=== PATIENT | male | born 1960 | race Caucasian/White ===

== ENCOUNTER 2017-02-26 00:53 | Emergency (ER) | payer OTHER | END 2017-02-26 01:38 | disposition other institution (70) | LOC: ED 00:53 | DX: Z02.89 Encounter for other administrative examinations (principal); S00.212A Abrasion of left eyelid and periocular area, initial encounter; W01.0XXA Fall on same level from slipping, tripping and stumbling without subsequent striking against object, initial encounter; Y93.89 Activity, other specified; Y99.8 Other external cause status; Y92.89 Other specified places as the place of occurrence of the external cause ==

== ENCOUNTER 2017-02-26 00:53 | Emergency (ER) | payer SELFPAY ==
[~2017-02-26] VITALS: Ht 165.1 cm; Wt 81.6 kg
[2017-02-26 01:38] VITALS: BP 155/88
== END 2017-02-26 01:38 | disposition other institution (70) ==
LOC: ED 00:53
DX: Z02.89 Encounter for other administrative examinations (principal); S00.212A Abrasion of left eyelid and periocular area, initial encounter; W01.0XXA Fall on same level from slipping, tripping and stumbling without subsequent striking against object, initial encounter; Y93.89 Activity, other specified; Y99.8 Other external cause status; Y92.89 Other specified places as the place of occurrence of the external cause